=== PATIENT | female | born 1995 | race African-American/Black ===

== ENCOUNTER 2019-09-03 11:23 | Emergency (ER) | payer OTHER ==
[~2019-09-03] VITALS: Ht 170.2 cm; Wt 80.9 kg
[2019-09-03] MEDS ORDERED: KETOROLAC TROMETHAMINE 30 MG/ML VIAL IM ONE (13:30)
[2019-09-03] MEDS ORDERED: ONDANSETRON HCL 4 MG TABLET PO ONE (13:30)
[2019-09-03] MEDS ORDERED: MORPHINE SULFATE 4 MG/ML SYRINGE IVP ONE (14:30)
[2019-09-03] MEDS ORDERED: SODIUM CHLORIDE 0.9% 1,000 ML IV ONE (14:30)
[2019-09-03 14:44] VITALS: BP 113/71
== END 2019-09-03 15:42 | disposition home or self-care (01) ==
LOC: EMS 11:26
DX: E28.2 Polycystic ovarian syndrome (principal); N94.6 Dysmenorrhea, unspecified; R11.2 Nausea with vomiting, unspecified
CPT/HCPCS: 96361; 96372; 96374; 99283; J1885; J2270; J7030; Q0162

== ENCOUNTER 2019-09-09 01:18 | Emergency (ER) | payer OTHER ==
[~2019-09-09] VITALS: Ht 167.6 cm; Wt 81.8 kg
[2019-09-09 01:37] VITALS: BP 132/72
== END 2019-09-09 02:56 | disposition home or self-care (01) ==
LOC: EMS 01:20
DX: L02.211 Cutaneous abscess of abdominal wall (principal); Z98.890 Other specified postprocedural states